=== PATIENT | male | born 1995 | race Caucasian/White ===

== ENCOUNTER 2025-05-20 09:45 | Emergency (ER) | payer OTHER, SELFPAY ==
[2025-05-20 09:52] VITALS: BP 127/88
[2025-05-20 11:57] VITALS: BMI 28.7
--- NOTE | 2025-05-20 13:05 | ED.MUSCINJ ---
HPI-Injury
General
Chief Complaint: Musculo-Skeletal Complaint
Source: patient
Exam Limitations: none
Time Seen by Provider: 05/20/25 11:59
Nursing documentation reviewed up to this point in time: agreed with
History of Present Illness-Injury
Initial Injury comments:
29-year-old male presenting with left ankle pain and increased pain in the left calf. The initial injury occurred approximately four to five weeks ago wilson he sprained his left ankle. The patient refrained from significant physical activity for
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 Since returning to work, the patient experienced increased pain in the left calf. He reports no chest pain or shortness of breath. The patients mother has
had a history of pulmonary embolism, which contributes to her concern.
Denies chest pain or shortness of breath.
Past History
Past History
ED Past Medical History: Psychiatric (Anxiety, uses CBD)
ED Past Surgical History: None
Social History
Tobacco: Non-smoker (cigars)
Alcohol: Occasional
Personal: Single
Living: with family
Employment: Employed
Review of Systems
Review of Systems
Allergies reviewed?: Yes
All Other Systems: ROS reviewed and negative except as documented in HPI and ROS
Phy Exam
Physical Exam
Physical Exam:
GENERAL: No acute distress. A&Ox3.
CONSTITUTIONAL: Afebrile.
RESPIRATORY: Regular respirations, nonlabored, lungs clear.
CARDIOVASCULAR: Regular rate and rhythm, no murmurs, no rubs.
GI: Soft, nontender, normal BS
MUSCULOSKELETAL: Mild tenderness mid left calf, no redness or warmth. Minimal swelling of the ankle compared to the opposite ankle. Normal pedal pulse, brisk capillary refill. Moves with ease. Well perfused.
SKIN: Warm, dry, pink
PSYCH: Normal mood and affect. Well kept, interactive and appropriate
NEUROLOGIC: Awake, alert and oriented. No focal neurological deficits
Injury Course
Orders/Labs/Results
Orders:
Orders
05/20/25 11:29
US Legs, Left [US Periph Venous LOWER Ext LT] Urgent
Comment:
Reason For Exam: PAIN IN CALF
MDM/Problems Addressed
MDM/Problems Addressed:
29-year-old male presenting with left ankle pain and increased pain in the left calf. The initial injury occurred approximately four to five weeks ago wilson he sprained his left ankle. The patient refrained from significant physical activity for
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 Since returning to work, the patient experienced increased pain in the left calf. He reports no chest pain or shortness of breath. The patients mother has
had a history of pulmonary embolism, which contributes to her concern.
US radiology report read: IMPRESSION:
Nonocclusive thrombus within the left popliteal vein.
Prescription for Eliquis sent to his pharmacy
*Pulse Oximetry
SaO2: 98
Oxygen Mode of Delivery: Room air
Patient hypoxic: no
*Critical Care Note
Total Time (30-74mins, 75-104mins- exclusive of procedures): Not Applicable
ED Attending Note
-
Portions of this chart may have been created with voice recognition software.� Occasional wrong word or��sound alike� substitutions may have occurred due to the inherent limitations of voice recognition software.
Discharge Plan
Departure
Patient Disposition: Home (Routine Discharge)
Date of Disposition: 05/20/25
Time of Disposition: 13:07
Patient with high blood pressure during this ER visit?: No
Condition: Good
Discharge Problem:
Left leg DVT
Instructions: Deep vein thrombosis (blood clot in the leg), Apixaban
Prescriptions:
New
Eliquis 5 mg tablet
5 mg PO BID Qty: 70 0RF
Rx Instructions:
10 mg twice daily x 7 days then 5 mg twice daily
No Action
cyclobenzaprine 10 MG tablet
10 mg PO HS Qty: 7 0RF
cyclobenzaprine 10 MG tablet
10 mg PO TIDPRN PRN (Reason: spasm) Qty: 20 0RF
Referrals:
UNKNOWN - PT DOES,NOT KNOW [Family Provider]
Activity Restrictions/Additional Instructions:
As we discussed you have a nonocclusive clot in the left popliteal vein. I sent a prescription to your pharmacy for Eliquis to take daily until further instructed by your doctor. Call Thursday after the holiday and make an appointment with
your primary doctor to get ordered to have a repeat ultrasound
Interventions
Interventions:
*Risk Screen - Suicide Last Done: 05/20/25 09:52
*Neglect/Abuse Screening Last Done: 05/20/25 09:52
*Nursing Disposition Last Done: 05/20/25 13:33
ED-Musculoskeletal Assessment Last Done: 05/20/25 11:57
Discharge Date and Time
Discharge Date/Time: 05/20/25 13:33
Print Language: MALTESE
== END 2025-05-20 13:33 | disposition home or self-care (01) ==
LOC: EMR 09:45
PROVIDERS: EMERGENCY PHYSICIAN Emergency Medicine
DX: I82.432 Acute embolism and thrombosis of left popliteal vein (principal); F41.9 Anxiety disorder, unspecified; F17.290 Nicotine dependence, other tobacco product, uncomplicated; Z82.49 Family history of ischemic heart disease and other diseases of the circulatory system
CPT/HCPCS: 99284; 93971